=== PATIENT | female | born 1985 | race Asian ===

== ENCOUNTER 2017-11-26 04:10 | Inpatient (IN) | payer OTHER, SELFPAY ==
[~2017-11-26] VITALS: Ht 170.2 cm; Wt 83.0 kg
[2017-11-26] MEDS: LACTATED RINGERS 1,000 ML IV SCH ×2 (04:44→07:10)
[2017-11-26] MEDS ORDERED: CLINDAMYCIN 900 MG in DEXTROSE 5% 100 ML IV SCH (05:00)
[2017-11-26] MEDS ORDERED: TERBUTALINE 1 MG/ML VIAL SUBQ SCH (05:00)
[2017-11-26] MEDS ORDERED: TERBUTALINE 1 MG/ML VIAL SUBQ ONE (05:18)
[2017-11-26] MEDS ORDERED: FERR325E14 PO (06:30)
[2017-11-26] MEDS ORDERED: PREN-546 PO (06:30)
[2017-11-26] MEDS ORDERED: CITRIC ACID/SODIUM CITRATE 30 ML UDC PO ONE (06:30)
[2017-11-26] MEDS ORDERED: INFLUENZA VIRUS VACCINE QUAD 0.5 ML SYR IMVAC ONE (06:35)
[2017-11-26 06:36] VITALS: BP 113/62
[2017-11-26 06:52] LABS: HEMATOCRIT 36.2 % (36-48); HEMOGLOBIN 12.1 g/dL (12.0-16.0); MEAN CORPUSCULAR HEMOGLOBIN 28 pg (27-31); MEAN CORPUSCULAR HGB CONC 34 g/dL (33-37); MEAN CORPUSCULAR VOLUME 84 fL (80-94); PLATELET COUNT (AUTO) 182 K/uL (140-450); RED BLOOD CELL COUNT(AUTO) 4.31 MIL/uL (4.20-5.40); RED CELL DISTRIBUTION WIDTH 12.3 % (11.6-13.7); WHITE BLOOD COUNT (AUTO) 10.9 K/uL (4.8-10.8)
[2017-11-26] MEDS ORDERED: OXYTOCIN 10 UNITS/ML VIAL ONE (06:53)
[2017-11-26] MEDS ORDERED: TRIAMCINOLONE 10 MG/ML 5ML VIAL ONE (06:54)
[2017-11-26 06:55] LABS: APPEARANCE,URINE HAZY (CLEAR); BILIRUBIN,URINE NEGATIVE (NEGATIVE); COLOR,URINE YELLOW (YELLOW); LEUKOCYTE ESTERASE ,URINE NEGATIVE (NEGATIVE); UGLUCOSE NEGATIVE (NEGATIVE)
[2017-11-26] MEDS ORDERED: CLINDAMYCIN 900 MG/6 ML VIAL IV ONE (06:55)
[2017-11-26] MEDS ORDERED: CITRIC ACID/SODIUM CITRATE 30 ML UDC ONE (06:55)
--- NOTE | 2017-11-26 06:56 | NUR ---
PATIENT HAS BEEN SCREENED AND CATEGORIZED LOW NUTRITION RISK. PATIENT WILL BE SEEN WITHIN 7 DAYS OF ADMISSION. 12/02/17 ZAINA LEIVA MS, RDN
[2017-11-26 07:08] LABS: RBC,URINE 0-5 (RARE) /HPF (0-5)
[2017-11-26 07:09] LABS: BLOOD, URINE 1+ (NEGATIVE); NITRITE, URINE POSITIVE (NEGATIVE); WBC,URINE 0-5 (RARE) /HPF (0-5)
[2017-11-26] MEDS ORDERED: ePHEDrine 50 MG/ML VIAL ONE (07:10)
[2017-11-26] MEDS ORDERED: BUPIVACAINE-MPF 0.75% 10 ML VIAL INJ ONE (07:10)
[2017-11-26] MEDS ORDERED: MIDAZOLAM 2 MG/2 ML VIAL ONE (07:16)
[2017-11-26] MEDS ORDERED: KETAMINE 500 MG/5 ML VIAL ONE (07:17)
[2017-11-26] MEDS ORDERED: fentaNYL 0.05 MG/ML VIAL ONE (07:17)
[2017-11-26] MEDS ORDERED: MORPHINE PRES FREE 10 MG/10 ML AMP IV ONE (07:17)
[2017-11-26] MEDS ORDERED: OXYTOCIN 20 UNITS/LR PREMIX 1,000 ML IV ONE (07:40)
[2017-11-26] MEDS ORDERED: diphenhydrAMINE 50 MG/ML VIAL ONE (07:40)
[2017-11-26 07:41] LABS: POTASSIUM 3.4 mmol/L (3.5-5.1)
[2017-11-26 07:42] LABS: ANION GAP 13.7 (8-16); CARBON DIOXIDE 21.7 mmol/L (21-32); CREATININE 0.9 mg/dL (0.6-1.3); TOTAL BILIRUBIN 0.3 mg/dL (0.0-1.0)
[2017-11-26 07:43] LABS: ALBUMIN 2.4 g/dL (3.4-5.0)
[2017-11-26] MEDS ORDERED: ONDANSETRON 4 MG/2 ML VIAL IVP PRN (08:10)
[2017-11-26] MEDS ORDERED: KETOROLAC 30 MG/ML VIAL IVP PRN (08:10)
[2017-11-26] MEDS ORDERED: diphenhydrAMINE 50 MG/ML VIAL IVP PRN (08:10)
[2017-11-26] MEDS ORDERED: ONDANSETRON 4 MG/2 ML VIAL ONE (08:22)
[2017-11-26 08:54] LABS: LYMPHOCYTES % (MANUAL) 6 % (20-46); MONOCYTES % (MANUAL) 6 % (5-12)
[2017-11-26] MEDS ORDERED: OXYTOCIN 10 UNITS in LACTATED RINGERS 1,000 ML IV SCH (09:01)
[2017-11-26] MEDS ORDERED: HYDROcodone/APAP 5/325 MG 1 TAB TAB PO PRN (09:05)
[2017-11-26] MEDS ORDERED: METHYLERGONOVINE 0.2 MG/ML AMP IM PRN (09:05)
[2017-11-26] MEDS ORDERED: SIMETHICONE 80 MG TAB.CHEW PO PRN (09:05)
[2017-11-26] MEDS ORDERED: TEMAZEPAM 15 MG CAP PO PRN (09:05)
[2017-11-26] MEDS ORDERED: oxyCODONE/APAP 5/325 MG 1 TAB TAB PO PRN (09:05)
[2017-11-26] MEDS ORDERED: MAGNESIUM CITRATE 300 ML BTL PO SCH (09:05)
[2017-11-26] MEDS ORDERED: MEASLES, MUMPS, AND RUBELLA 1 VIAL SQVAC PRN (09:05)
[2017-11-26] MEDS: OXYTOCIN 20 UNITS in LACTATED RINGERS 1,000 ML IV SCH (12:00)
[2017-11-26] MEDS ORDERED: DOCUSATE SOD/SENNA 50/8.6 MG 1 TAB PO SCH (21:00)
[2017-11-27] MEDS ORDERED: OXYTOCIN 20 UNITS/LR PREMIX 1,000 ML IV ONE (03:03)
[2017-11-27] MEDS: OXYTOCIN 20 UNITS in LACTATED RINGERS 1,000 ML IV SCH (03:44)
[2017-11-27 07:35] LABS: HEMATOCRIT 32.8 % (36-48); MEAN CORPUSCULAR HEMOGLOBIN 28 pg (27-31); MEAN CORPUSCULAR HGB CONC 34 g/dL (33-37); MEAN CORPUSCULAR VOLUME 84 fL (80-94); PLATELET COUNT (AUTO) 153 K/uL (140-450); RED BLOOD CELL COUNT(AUTO) 3.91 MIL/uL (4.20-5.40); RED CELL DISTRIBUTION WIDTH 12.3 % (11.6-13.7); WHITE BLOOD COUNT (AUTO) 9.5 K/uL (4.8-10.8)
[2017-11-27] MEDS ORDERED: SODIUM PHOSPHATE 118 ML ENEM RC SCH (09:00)
[2017-11-27 09:05] LABS: BASOPHILS % (MANUAL) 0 % (0-2); EOSINOPHILS % (MANUAL) 0 % (0-4); LYMPHOCYTES % (MANUAL) 11 % (20-46); MONOCYTES % (MANUAL) 5 % (5-12)
[2017-11-27] MEDS: IBUPROFEN 800 MG TAB PO PRN ×2 (14:07→21:34)
[2017-11-27] MEDS ORDERED: INFLUENZA VIRUS VACCINE QUAD 0.5 ML SYR IMVAC SCH (22:10)
== END 2017-11-28 14:11 | disposition home or self-care (01) | DRG 766 ==
LOC: MLD 04:10 → MFCC 09:00
PROVIDERS: ADMIT Obstetrics & Gynecology; ATTEND Obstetrics & Gynecology
PROC: 10D00Z1 Extraction of Products of Conception, Low, Open Approach (ICD-10-PCS; principal; 2017-11-26 07:00)
PROC: 3E0234Z Introduction of Serum, Toxoid and Vaccine into Muscle, Percutaneous Approach (ICD-10-PCS; 2017-11-27)
PROC: 3E0234Z Introduction of Serum, Toxoid and Vaccine into Muscle, Percutaneous Approach (ICD-10-PCS; 2017-11-27)
DX: O69.1XX0 Labor and delivery complicated by cord around neck, with compression, not applicable or unspecified (principal); O34.211 Maternal care for low transverse scar from previous cesarean delivery; Z37.0 Single live birth; Z3A.37 37 weeks gestation of pregnancy; Z23 Encounter for immunization
CPT/HCPCS: 36415; 80053; 81001; 85025; 86592; 86886; 86900; 86901; 87086; 90658; 90715; J1200; J1885; J2250; J2270; J2405; J2590; J3010; J3105; J3301; J3490; J7060; J7120